=== PATIENT | female | born 1975 | race Caucasian/White ===

== ENCOUNTER 2020-10-26 11:42 | Emergency (ER) | payer OTHER, SELFPAY ==
[2020-10-26 11:57] VITALS: BP 103/41; PULSE 78; RESP 16; TEMP 37.1; O2SAT 98; BMI 26.2
== END 2020-10-26 15:34 | disposition left against medical advice (07) ==
PROVIDERS: Emergency Provider Emergency Medicine Emergency Medical Services; PCP Internal Medicine
DX: Z71.1 Person with feared health complaint in whom no diagnosis is made (principal)
CPT/HCPCS: 99281; 99282

== ENCOUNTER 2022-01-17 12:26 | Emergency (ER) | payer OTHER, SELFPAY ==
[2022-01-17 12:36] VITALS: BP 116/77; PULSE 88; O2SAT 99
[2022-01-17 12:38] VITALS: BP 116/77; BP 119/64; PULSE 78; PULSE 88; RESP 20; TEMP 35.8; O2SAT 100; BMI 27.4
[2022-01-17] MEDS: Ondansetron ODT 4 MG TAB.RAPDIS TRANSLINGU (12:43)
== END 2022-01-17 15:13 | disposition left against medical advice (07) ==
LOC: HO.ED 14:54
PROVIDERS: Emergency Provider Emergency Medicine
DX: R11.2 Nausea with vomiting, unspecified (principal); R51.9 Headache, unspecified
CPT/HCPCS: 99281

== ENCOUNTER 2022-05-29 14:11 | Outpatient (RCR) | payer OTHER, SELFPAY | END 2022-06-30 10:40 | disposition home or self-care (01) | LOC: HO.PT 14:11 | PROVIDERS: PCP Internal Medicine; Visit Provider Internal Medicine | DX: M25.551 Pain in right hip (principal); M25.552 Pain in left hip; M25.561 Pain in right knee; M25.562 Pain in left knee | CPT/HCPCS: 97110; 97161 ==

== ENCOUNTER 2022-06-04 07:29 | Outpatient (REF) | payer OTHER, SELFPAY ==
--- NOTE | ~2022-06-04 | MR_ITS ---
EXAMINATION: MR CERVICAL SPINE WITHOUT AND WITH CONTRAST CLINICAL INFORMATION: 46-year-old with self-reported hyperreflexia, bilateral heel pain and bilateral shoulder pain. Evaluating for cervical cord compression with myelopathy. COMPARISON: None TECHNIQUE: MRI of the cervical spine was obtained using routine sequences with and without contrast. Intravenous contrast: Gadavist 7 mL. FINDINGS: ALIGNMENT: Normal. Normal lordotic curvature. CRANIOCERVICAL JUNCTION/C1-C2 ARTICULATIONS: Mild retrolisthesis at the left C1-C2 facet joint, which is nonspecific but is likely related to a mild degree of head rotation. The atlantooccipital joints and C1-C2 articulations are otherwise intact and unremarkable. VISUALIZED INTRACRANIAL STRUCTURES: Within normal limits. VERTEBRAL BODIES: Well maintained with normal height. No compression fractures, anomalies or other deformities. DISC SPACES AND ENDPLATES: The intervertebral disc space heights are well maintained. There are mild degrees of anterior marginal endplate spurring with prevertebral disc ossified complex at C4-C5, C5-C6 and C6-C7. Endplates are intact. BONE MARROW: No significant marrow-replacing process or bone marrow edema and no abnormal bone marrow enhancement. C2-C3: No disc herniation or canal stenosis. No significant DJD or neural foraminal stenosis. C3-C4: No disc herniation or canal stenosis. No significant DJD or neural foraminal stenosis. C4-C5: No disc herniation or canal stenosis. No significant DJD or neural foraminal stenosis. C5-C6: No disc herniation or canal stenosis. No significant DJD or neural foraminal stenosis. C6-C7: Broad-based central to right paramedian disc protrusion noted with indentation of the ventral thecal sac without cord impingement. Mild central canal narrowing is noted. No significant DJD or neural foraminal stenosis. C7-T1: No disc herniation or canal stenosis. Mild facet arthrosis noted bilaterally without significant neural foraminal stenosis. T1-T2: No disc herniation or canal stenosis. No significant DJD or neural foraminal stenosis. SPINAL CORD: The cervical and visualized upper thoracic spinal cord is normal in signal intensity throughout, without focal lesion, edema or syrinx and no abnormal spinal cord or leptomeningeal enhancement. Very slight ventral cord deformity on the right at the C6-C7 level noted, likely chronic. EXTRACRANIAL SOFT TISSUES: The visualized extracranial head/neck soft tissues are unremarkable within the limitations of the study. MR/MR cervical spine wo/w con IMPRESSION: 1. Mild broad-based central to right paramedian disc protrusion at C6-C7 without cord impingement, with very slight ventral cord deformity on the right at this level, likely chronic. 2. Mild degrees of anterior marginal spondylosis and prevertebral disc-osteophyte complex at C4-C5, C5-C6 and C6-C7. 3. Normal appearance to the spinal cord. No abnormal spinal cord or leptomeningeal enhancement. No myelopathic changes.
== END 2022-06-04 07:30 | disposition home or self-care (01) ==
LOC: HO.MRI 07:29
PROVIDERS: PCP Internal Medicine; Visit Provider Psychiatry & Neurology Neurology
DX: G95.20 Unspecified cord compression (principal)
CPT/HCPCS: 72156; A9585

== ENCOUNTER 2022-06-22 08:06 | Outpatient (REF) | payer OTHER, SELFPAY ==
--- NOTE | ~2022-06-22 | MR_ITS ---
EXAMINATION: MR THORACIC SPINE WITHOUT AND WITH CONTRAST CLINICAL INFORMATION: Paraparesis COMPARISON: Thoracic spine radiographs from 03/05/2015. TECHNIQUE: MRI of the thoracic spine was obtained using routine sequences without and following the administration of 7 mL of Gadavist intravenous contrast. FINDINGS: Mildly motion degraded exam. Normal anatomic alignment. Normal, homogeneous marrow signal throughout. The vertebral body heights are maintained. The intervertebral discs are of normal height and signal. No significant abnormalities of the thoracic spinal cord. The conus medullaris terminates at the level of L1-L2. No abnormal contrast enhancement. No significant abnormalities of the paraspinal musculature. Limited evaluation of the intrathoracic structures without significant abnormalities. The descending thoracic aorta is of normal contour and caliber. AXIAL SPINAL LEVELS: Normal annular contours.. There is mild multilevel facet joint arthropathy. There is no neural foraminal stenosis. There is no spinal canal stenosis. 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 No overt spinal canal stenosis or nerve root compression. No abnormal enhancement or spinal cord signal abnormality.
== END 2022-06-22 08:07 | disposition home or self-care (01) ==
LOC: HO.MRI 08:06
PROVIDERS: Visit Provider Psychiatry & Neurology Neurology
DX: G82.20 Paraplegia, unspecified (principal)
CPT/HCPCS: 72157; A9585

== ENCOUNTER 2022-07-10 08:06 | Outpatient (REF) | payer OTHER, SELFPAY ==
--- NOTE | ~2022-07-10 | MR_ITS ---
EXAMINATION: MR BRAIN WITHOUT AND WITH CONTRAST CLINICAL INFORMATION: Paraparesis. COMPARISON: CT head from 08/05/2019. TECHNIQUE: MRI of the brain was obtained using routine sequences without and following the administration of 7 mL of Gadavist intravenous contrast. FINDINGS: No focal restricted diffusion is demonstrated to suggest acute or subacute cerebral ischemia. No evidence of acute or chronic hemorrhagic products on heme-sensitive imaging. Few nonspecific scattered periventricular and deep white matter T2 FLAIR hyperintensities. The ventricles are normal in morphology and size. No abnormal mass effect. No midline shift. Normal appearance of the pituitary gland. Normal positioning of the cerebellar tonsils. Normal arterial and venous vascular flow voids are present. No abnormal contrast enhancement. Normal, homogeneous marrow signal. Mild mucosal thickening of the paranasal sinuses. No signal abnormalities within the mastoids. MR/MR head/brain wo/w con IMPRESSION: 1. No acute intracranial abnormalities. No abnormal intracranial enhancement. 2. Minimal nonspecific white matter changes.
== END 2022-07-10 08:07 | disposition home or self-care (01) ==
LOC: HO.MRI 08:06
PROVIDERS: Visit Provider Psychiatry & Neurology Neurology
DX: G82.20 Paraplegia, unspecified (principal)
CPT/HCPCS: 70553; A9585

== ENCOUNTER 2022-08-25 14:39 | Outpatient (REF) | payer OTHER, SELFPAY ==
[2022-08-25 16:26] LABS: Vitamin B12 590 pg/mL (200-900)
[2022-08-25 16:32] LABS: Erythrocyte Sedimentation Rate 12 MM/HR (0-20)
[2022-08-27 08:38] LABS: Lyme Abs Screen <0.90 index
[2022-08-31 09:24] LABS: Anti Nuclear Antibody Screen NEGATIVE (NEGATIVE)
== END 2022-08-25 14:40 | disposition home or self-care (01) ==
LOC: HO.LAB 14:39
PROVIDERS: PCP Internal Medicine; Visit Provider Psychiatry & Neurology Neurology
DX: G82.20 Paraplegia, unspecified (principal)
CPT/HCPCS: 36415; 82550; 82607; 85652; 86038; 86039; 86617; 86618

== ENCOUNTER → 2022-09-18 09:27 | Day surgery (SDC) | payer OTHER, SELFPAY ==
[2022-09-18] VITALS (7 sets, daily range): BP systolic 99–110; BP diastolic 58–64; PULSE 60–68; RESP 14–16; TEMP 36.2–36.4; O2SAT 98–100; BMI 27.4
--- NOTE | ~2022-09-18 | FL_ITS ---
EXAMINATION: XR LUMBAR PUNCTURE CLINICAL INFORMATION: Bilateral paraparesis. COMPARISON: None available. TECHNIQUE: Following explaining fluoroscopy-guided lumbar puncture procedure, benefits and risk, a written consent was obtained. Patient was placed prone and a site was selected and marked on the skin. Marked site overlying the L4-L5 and L3-L4 disc levels were cleaned and draped in usual sterile manner. 1% lidocaine was injected left para midline region. A 22-gauge spinal needle was initially injected at L4-L5 disc level however due to dry tap needle was inserted at the L3-L4 disc level. After removing the stylet and observing CSF return, patient was quickly placed in the left lateral leg venous view and opening CSF pressure was obtained. Subsequently fluid was collected in 4 test tubes. Stylet was reintroduced and needle withdrawn. Patient tolerated procedure extremely well. Sterile Band-Aid applied postprocedure. FINDINGS: On images obtained of lumbar spine there is normal lumbar lordosis. The vertebral heights and alignment is normal. The disc heights are normal. The opening CSF pressure measures 15 cm of water. In 4 test tubes. Approximately 8 mL left clear CSF fluid was collected FLUOROSCOPY TIME: 2.3 minutes DOSE AREA PRODUCT: 27.503 uGy-m2 (microgray-meter squared) FL/FL guided lumbar puncture LP IMPRESSION: Successful fluoroscopic guided lumbar puncture performed. The opening CSF pressure measured 15 cm of water.
[2022-09-18 10:09] LABS: MANUAL DIFF FLAG NO
[2022-09-18 10:20] LABS: Basophils Absolute Auto 0.1 X10*3/uL (0.0-0.2); Basophils Percent Auto 0.7 % (0-2); Eosinophils Absolute Auto 0.2 X10*3/uL (0.0-0.4); Eosinophils Percent Auto 2.1 % (0-4); Hematocrit 38.9 % (37.0-47.0); Hemoglobin 12.9 g/dl (12.0-16.0); Imm Gran Abs Auto 0.03 X10*3/uL (0.00-0.03); Imm Gran Pct Auto 0.4 % (0.0-0.4); Lymphocytes Absolute Auto 1.7 X10*3/uL (1.2-4.9); Lymphocytes Percent Auto 22.4 % (20-40); Mean Corpuscular HGB Conc 33.2 g/dl (31.0-35.0); Mean Corpuscular Hemoglobin 29.8 pg (27.0-33.0); Mean Corpuscular Volume 89.8 fL (80.0-98.0); Mean Platelet Volume 9.7 fL (9.4-12.3); Monocytes Absolute Auto 0.5 X10*3/uL (0.1-1.2); Monocytes Percent Auto 6.6 % (2-11); Neutrophils Absolute Auto 5.2 x10*3/uL (2.0-8.3); Neutrophils Percent Auto 67.8 % (45-73); Platelet Count 276 X10*3/uL (160-400); Red Blood Count 4.33 X10*6/uL (4.20-5.50); Red Cell Distribution Width 14.2 % (11.0-16.0); White Blood Count 7.6 X10*3/uL (4.8-10.8)
[2022-09-18 10:24] LABS: INTERNATIONAL NORM RATIO 1.1 (0.9-1.1); Prothrombin Time 12.1 SEC (10.0-13.1)
[2022-09-18 10:27] LABS: Partial Thromboplastin Time 32.2 SEC (26.0-36.4)
[2022-09-18] MEDS: Acetaminophen 325 MG TABLET 975 MG PO (13:15)
[2022-09-18 14:08] LABS: CSF Appearance Clear, Colorless; CSF Tube # 1
[2022-09-18 14:15] LABS: Glucose CSF 53 mg/dL; Total Protein CSF 27.5 mg/dL (15-45)
[2022-09-18 14:24] LABS: Appearance CSF CLEAR; CSF Monos 20 %; CSF Tube # 4; Color CSF COLORLESS; Lymphocytes CSF 80 %; Red Blood Cell CSF 0 MM*3; White Blood Cell CSF 2 MM*3
[2022-09-18] MEDS: oxyCODONE HCl Immed Release 5 MG TABLET PO (14:50)
[2022-10-05 11:51] LABS: HTLV I-II Antibody SEE COMMENTS
== END | disposition home or self-care (01) ==
PROVIDERS: Psychiatry & Neurology Neurology; PCP Internal Medicine; Visit Provider Radiology Diagnostic Radiology
PROC: 009U3ZZ Drainage of Spinal Canal, Percutaneous Approach (ICD-10-PCS; CPT 62270; principal; 2022-09-18 11:00)
DX: G82.20 Paraplegia, unspecified (principal); G47.9 Sleep disorder, unspecified; M79.7 Fibromyalgia; F41.1 Generalized anxiety disorder; N32.89 Other specified disorders of bladder; Z79.899 Other long term (current) drug therapy; Z88.8 Allergy status to other drugs, medicaments and biological substances
CPT/HCPCS: 36415; 62328; 82042; 82945; 83916; 84157; 85025; 85610; 85730; 86790; 87015; 87070; 87205; 89051

== ENCOUNTER 2023-04-26 08:58 | Emergency (ER) | payer OTHER, SELFPAY ==
[2023-04-26 09:15] VITALS: BP 123/60; PULSE 80; RESP 18; TEMP 36.6; O2SAT 100; BMI 26.8
--- NOTE | 2023-04-26 09:52 | ED_ITS ---
HPI - General Adult General Chief complaint: General Medical Stated complaint: Fibromyalgia Time Seen by Provider: 04/26/23 09:26 Source: patient Mode of arrival: ambulatory Limitations: no limitations History of Present Illness HPI narrative: 47-year-old female history of anxiety, fibromyalgia, and posttraumatic stress disorder presents to the ED for fibromyalgia exacerbation. Patient states generalized body pain, and low back pain radiating down both legs. patient denies any urinary / bowel incontinence. Patient denies any leg swelling, recent long travel, recent surgery, or any control use. Patient denies any history of IV drug use. Patient seen by multiple providers include and is awaiting for a rheumatology appointment. Patient states her Cymbalta had to be increased to cope with fibromyalgia symptoms. Patient also states slight cough. patient denies any chest pain, shortness of breath, calf pain, or pleurisy. Patient denies any recent trauma. Related Data Home Medications Medication Instructions Recorded Confirmed gabapentin 300 mg capsule 300 mg PO TID 09/18/22 09/18/22 paroxetine HCl 40 mg tablet 40 mg PO DAILY 09/18/22 09/18/22 Previous Rx's Medication Instructions Recorded lidocaine 4 % topical patch 1 patch topical DAILY PRN pain #30 04/26/23 ea oxycodone 5 mg capsule 5 mg PO TID PRN pain 3 days #9 caps 04/26/23 Allergies Allergy/AdvReac Type Severity Reaction Status Date / Time No Known Allergies Allergy Verified 04/26/23 09:17 Review of Systems Review of Systems: Generalized body aches, back pain radiating down legs. Yes all other systems are reviewed and are negative PMFSH Past Medical History Surgical History (Updated 09/18/22 @ 10:18 by Mireille Can RN) H/O tubal ligation Physical Exam ED Vital Signs: Vital Signs - 24 hr 04/26/23 09:15 Temperature 97.9 F Pulse Rate 80 Respiratory Rate 18 Blood Pressure 123/60 Pulse Oximetry 100 Oxygen Delivery Method Room Air BMI result Body Mass Index 26.8 Const General: cooperative, healthy appearing, comfortable, no acute distress, well developed, alert, awake and Physically active Orientation/consciousness: oriented to person, oriented to place and patient oriented x3 HENMT Head: Yes normal to inspection, Yes No palpable skull fracture present, Yes nor mocephalic and Yes atraumatic Eyes General: appearance normal, both eyes and all related structures Neck Neck: Yes normal visual inspection, Yes full ROM, Yes no lymphadenopathy, Yes no meningeal signs, Yes trachea midline, Yes supple, No anterior neck swelling and No tender Chest Chest palpation & inspection: normal inspection of the chest and normal palpation of entire chest wall Resp Effort & Inspection: normal respiratory effort and able to speak in complete sentences Auscultation: clear to auscultation bilaterally Cardio Jugular venous distension: no JVD Heart sounds: S1 normal heart sound present and S2 normal heart sound present GI Inspection: Yes normal to inspection Palpation (GI): Soft to palpation, not firm, nontender, no guarding and not rigid General: Yes no CVA tenderness Back/Spine/Pelvis Back: no CVA tenderness and back tenderness (lumbar/thoracic) Skin General skin exam: no rashes or lesions noted, elasticity normal and turgor normal Neuro General: oriented to person, oriented to place, patient oriented x3, gait normal, tone normal, moves all extremities, Normal light touch and pain sensation, no meningeal signs, no focal motor deficits, CN's II-XI intact bilaterally and normal sensation to monofilament Extrem Other: bilateral lower extremity negative for swelling, pitting edema, or calf pain. Patient describes pain lower extremities as burning. Negative for rash. Motor/neuro/vacsular exam intact of lower extremiteis. negative for erythema, ecchymosis, skin tightness, hotness, or coldness. Psych Appearance: grossly normal, well kempt and not disheveled Medications Administered Discontinued Medications Generic Name Dose Route Start Last Admin Trade Name Monica PRN Reason Stop Dose Admin Acetaminophen 975 mg 04/26/23 10:04/26/23 10:08 Acetaminophen 325 Mg Tablet PO 04/26/23 10:02 975 mg ONCE ONE Administration Oxycodone HCl 5 mg 04/26/23 10:04/26/23 10:08 Oxycodone Hcl Immed Release 5 Mg Tablet PO 04/26/23 10:02 5 mg ONCE ONE Administration Prednisone 40 mg 04/26/23 10:01 04/26/23 10:07 Prednisone 20 Mg Tablet PO 04/26/23 10:02 40 mg ONCE ONE Administration Prednisone 20 mg 04/26/23 10:13 04/26/23 10:19 Prednisone 20 Mg Tablet PO 04/26/23 10:14 20 mg ONCE ONE Administration Medical Decision Making Medical Decision Making [facility] Narrative: 47-year-old female history of anxiety, fibromyalgia, posttraumatic stress disorder, presents to ED for fibromyalgia exacerbation described as generalized body aches, and low back pain radiating down both legs. Patient denies any recent trauma, urinary / bowel incontinence, IV drug use, recent long travel, recent surgery, calf pain, or pleurisy. patient admits to cough. COVID influenza swab ordered. UA ordered to make sure there is no signs of urinary tract infection. 10:22am: I reviewed notes by TAO Borrero PA-C from February 15 2023 where patient had similar presentation of fibromyagli exacerbation with worsening bilateral leg pain and back pain and he increased the Cymbalta. In his note patient had negative neuro workup. And he referred patient to rheumatology. Presently patient has same presentation as notes from . 11:33pm; Enrique Portillo of [facility] Training [facility] of Endocrinology/Rheumatology was contacted to expedite patient having an earlier rheumatology appointment for her symptoms. She agreed and states she will contact patient for an earlier appointment. patient will be discharged with oxycodone. Patient cannot take NSAIDs due to heart palpitations. Not suspecting cauda equina, spinal epidural abscess, DVT, compartment syndrome, PE, myocardial infarction, CHF, or any fracture. Patient eating food and laughing. Patient has normal gait. 12:09pm: Patient has appointment with Dr. Duong of Rheumatology for 05/18/2023 Differential Diagnosis Differential Diagnoses: The differential diagnosis associated with the presentation includes ( Fibromyalgia, COVID, influenza, sore throats,) Admission/Observation Consideration of admission/observation: Escalation of care including admission/observation considered Consult Healthcare Provider Management of the patient was discussed with: Consumer Loan Underwriter (LEad Training Designer of ENdocrinolog/Rheumatology CLinic Enrique Portillo) Lab Data [facility] Lab Attestation statement: I reviewed the patient's lab results. Labs: Lab Results 04/26/23 04/26/23 Range/Units 10:10 10:25 Urine Color Yellow Urine Appearance Cloudy Urine pH >= 9.0 (5.0-9.0) Ur Specific [place] 1.015 (1.005-1.025) Urine Protein Negative (Neg-Trace) mg/dL Urine Glucose (UA) Negative (Negative) mg/dL Urine Ketones Negative (Negative) mg/dL Urine Blood Negative (Negative) Urine Nitrite Negative (Negative) Ur Leukocyte Esterase Negative (Negative) Urine Test NEGATIVE (NEGATIVE) COVID-19 (EL[facility]ETH) Negative (Negative) COVID-19 Clin Com See Note Influenza Type A (MONICA) Negative (Negative) Influenza Type B (MONICA) Negative (Negative) Influenza A & B Note See Note External Record Review External record reviewed: Other (PRior vistis) Prescription Management I considered prescription management with: Pain Medication Discharge Plan Discharge Clinical Impression: Fibromyalgia Patient Disposition: Home, Self-Care Instructions: Fibromyalgia (ED), Musculoskeletal Pain (ED) Additional Instructions: please follow-up with the primary care provider. Please contact Enrique Portillo, Lead credit risk manager of Endocrinology/Rheumatology CLinic, to confirm earlier appointment. return to the ED immediately for any worsening pain, leg swelling, calf pain, coughing up blood, worsening back pain, fever, chills, urinary / bowel incontinence, chest pain, shortness of breath, chest pain on inspiration, uncontrolled pain, or any other concerning symptoms. Prescriptions: New oxycodone 5 mg capsule 5 mg PO TID PRN (Reason: pain) 3 Days Qty: 9 0RF Rx Instructions: Partial Fill upon patient request. Do not take at work or while driving. Can take at night. lidocaine 4 % adhesive patch,medicated 1 patch topical DAILY PRN (Reason: pain) Qty: 30 0RF No Action gabapentin 300 mg capsule 300 mg PO TID paroxetine HCl 40 mg tablet 40 mg PO DAILY Stand Alone Forms: Work/School Release Interventions: ED Discharge Assessment Last Done: 04/26/23 12:23 Discharge Date/Time: 04/26/23 12:24 Print Language: Azeri
[2023-04-26] MEDS: predniSONE 20 MG TABLET 40 MG PO (10:07)
[2023-04-26] MEDS: oxyCODONE HCl Immed Release 5 MG TABLET PO (10:08)
[2023-04-26] MEDS: Acetaminophen 325 MG TABLET 975 MG PO (10:08)
[2023-04-26] MEDS: predniSONE 20 MG TABLET PO (10:19)
[2023-04-26 10:33] LABS: COVID-19 Test Negative (Negative); IDNOW Serial# 08D9AD1C; IDNOW Serial# BCCEAD1C; Influenza A Negative (Negative); Influenza B2 Negative (Negative)
[2023-04-26 10:36] LABS: Appearance Urine Cloudy; Color Urine Yellow; Glucose Urine UA Negative (Negative); Leukocyte Esterase Urine Negative (Negative); Nitrite Urine Negative (Negative); PH >= 9.0 (5.0-9.0); Specific Gravity - Urine 1.015 (1.005-1.025); UPreg QC Valid YES; Urine Blood Negative (Negative); Urine Ketones Negative (Negative); Urine Pregnancy NEGATIVE (NEGATIVE); Urine Protein Negative (Neg-Trace)
== END 2023-04-26 12:24 | disposition home or self-care (01) ==
PROVIDERS: Physician Assistant; Emergency Provider Emergency Medicine; PCP Internal Medicine
DX: M79.7 Fibromyalgia (principal); Z11.52 Encounter for screening for COVID-19; F17.200 Nicotine dependence, unspecified, uncomplicated; Z79.899 Other long term (current) drug therapy
CPT/HCPCS: 81003; 81025; 87502; 87635; 99283; 99284

== ENCOUNTER 2023-05-18 07:45 | Outpatient (AMB) | payer OTHER, SELFPAY ==
[2023-05-18 07:49] VITALS: BP 122/84; PULSE 87; TEMP 36.1; O2SAT 97; BMI 26.5
--- NOTE | 2023-05-18 07:49 | A.OFFVIS_ITS ---
Intake Vital Signs 05/18/23 07:49 Height 5 ft 2 in Weight 144 lb 13.499 oz BMI 26.5 BP 122/84 Blood Pressure Location Lt brachial Position Sitting Pulse 87 Pulse Source Pulse Oximeter Temp 97 F Temp Source Skin Pulse Oximetry (%) 97 Oxygen Delivery Method Room Air Intake Visit Reasons: Fibromyalgia Intake Note: New pt presents today for fibromyalgia. Formerly seeing ATC, about a year ago. Meter Reading Clerk Required: No Accompanied by: Self / Same As Patient Allergies No Known Allergies Allergy (Verified 05/18/23 07:50) Medication List - Last Reconciled 05/18/23 by Curtis Duong MD cholecalciferol (vitamin D3) 50 mcg PO DAILY duloxetine 60 mg PO DAILY lidocaine 4% 1 patch topical DAILY PRN paroxetine HCl 40 mg PO DAILY HPI HPI Comments History of Present Illness Details This is a 47-year-old female who presents for evaluation of fibromyalgia. Of note patient was evaluated by Neurology due to bilateral knee hyperreflexia. She had an LP, CSF studies, thoracic and cervical MRIs. According to Neurology no specific cause was found. Autoimmune workup was performed which was negative, she was also evaluated at [facility] and no signature arthritic condition was diagnosed. She states that she has been having pain in her knees, groin, legs, difficulty walking. Patient reduced her working hours from 40 hours a week to 25 hours a week. She has difficulty falling and staying asleep. 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 Review of Systems Eyes Reports blurry vision and Reports diplopia ENT Reports tinnitus Card Reports chest pain and Reports dyspnea Resp Reports cough and Reports dyspnea GI Reports constipation Musc Reports arthralgias and Reports muscle weakness Psych Reports abnormal sleep pattern, Reports anxiety and Reports depression Physical Exam Vital Signs: Last Vital Signs Temp 97 F 05/18/23 07:49 Pulse 87 05/18/23 07:49 BP 122/84 05/18/23 07:49 Pulse Ox 97 05/18/23 07:49 Oxygen Delivery Method Room Air 05/18/23 07:49 BMI result Body Mass Index 26.5 Const General: cooperative, healthy appearing and comfortable Nutritional Appearance: overweight Orientation/consciousness: patient oriented x3 HEENT Head: Yes normocephalic and Yes atraumatic Mouth: moist mucous membranes Resp Effort & Inspection: normal respiratory effort and able to speak in complete sentences Auscultation: clear to auscultation bilaterally Cardio Rate: regular rate Rhythm: regular rhythm Skin General skin exam: no rashes or lesions noted Neuro General: patient oriented x3 Extrem Other: Multiple fibromyalgia tender points No active synovitis Normal nailfold capillaroscopy Assessment & Plan Assessment & Plan (1) Fibromyalgia: Code(s): M79.7 - Fibromyalgia Plan: This is a 47-year-old female who presents for evaluation of fibromyalgia. I do not see any signs of an autoimmune rheumatic disease. Discussed different management strategies for fibromyalgia. I suggested that patient seek evaluation by psychologist and/or psychiatrist. Try to follow sleep hygiene practices. Consider a sleep study to rule out obstructive sleep apnea. Regular exercise programs, consider low-impact exercises such as stretching, yoga, aquatherapy, swimming. She did not feel any significant improvement with gabapentin or duloxetine Follow-up with PCP Plan I spent 20 minutes reviewing patient's chart, evaluating patient,, counseling patient and documenting in the chart Coding Level of Care Code New Pt Level 3 (48767) Diagnoses Fibromyalgia M79.7
== END 2023-05-18 08:15 | disposition home or self-care (01) ==
PROVIDERS: PCP Internal Medicine; Visit Provider Student in an Organized Health Care Education/Training Program
DX: M79.7 Fibromyalgia (principal)
CPT/HCPCS: 99203

== ENCOUNTER → 2023-05-18 07:45 | Outpatient (BNVA) | payer OTHER, SELFPAY | PROVIDERS: PCP Internal Medicine; Visit Provider Student in an Organized Health Care Education/Training Program | DX: M79.7 Fibromyalgia (principal) | CPT/HCPCS: 99202 ==

== ENCOUNTER 2024-03-26 04:33 | Emergency (ER) | payer OTHER, SELFPAY ==
[2024-03-26 04:39] VITALS: BP 105/50; BP 112/68; PULSE 74; PULSE 80; RESP 16; TEMP 36.9; O2SAT 100; O2SAT 94; BMI 25.6
[2024-03-26 04:43] VITALS: BP 105/50; PULSE 76; RESP 20; TEMP 36.9; O2SAT 98
--- NOTE | 2024-03-26 04:46 | ED_ITS ---
HPI - URI/Sore Throat General Chief Complaint: Upper Respiratory Symptoms Stated Complaint: covid + Time Seen by Provider: 03/26/24 04:45 Source: patient Mode of arrival: ambulatory Limitations: no limitations History of Present Illness ED Provider: nina PALMER Narrative: Patient comes here for positive COVID with sore throat running nose body aches for last 3 days, last week her daughter was sick patient has never been vaccinated against COVID but had COVID 2 times Related Data Home Medications ?Medication ?Instructions ?Recorded ?Confirmed paroxetine HCl 40 mg tablet 40 mg PO DAILY 09/18/22 05/18/23 cholecalciferol (vitamin D3) 50 50 mcg PO DAILY 05/18/23 05/18/23 mcg (2,000 unit) capsule duloxetine 60 mg capsule,delayed 60 mg PO DAILY 05/18/23 05/18/23 release Previous Rx's ?Medication ?Instructions ?Recorded lidocaine 4 % topical patch 1 patch topical DAILY PRN pain #30 04/26/23 ea cyclobenzaprine 10 mg tablet 10 mg PO TID PRN muscle spasm #20 08/30/23 tabs amoxicillin 875 mg-potassium 1 tab PO BID #20 tabs 03/26/24 clavulanate 125 mg tablet benzonatate 200 mg capsule 200 mg PO TID PRN cough #30 caps 03/26/24 ibuprofen 600 mg tablet 600 mg PO Q6H PRN fever or pain 03/26/24 #30 tabs Allergies Allergy/AdvReac Type Severity Reaction Status Date / Time No Known Allergies Allergy Verified 03/26/24 04:41 Review of Systems Review of Systems: Yes all other systems are reviewed and are negative PMFSH Past Medical History Medical History Fibromyalgia Surgical History H/O tubal ligation Family History Family History Other Arthritis Social History Social History Alcohol intake: current Alcohol intake frequency: holidays/special occasions only Patient Tobacco Use Status: Current someday Tobacco user Smoked in Last 30 Days: No Use of substances other than those prescribed or required for medical reasons: No Advance Directives: No Do you have a plan to hurt others: No Plan Patient : No service: Yes 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 Oriented X3. No acute distress. ENT: Pharynx erythematous no exudates Oral Mucosa moist right tympanic membrane with clear fluid behind the drum with slight erythema Neck: Normal inspection. Neck supple. CVS: Normal heart rate and rhythm. Pulses normal. Respiratory: No respiratory distress. Equal air entry bilateral, no wheezing/rales/rhonchi Skin: Skin warm and dry. Normal skin color. Normal skin turgor. Extremities: No lower extremity edema. Neuro: Oriented X 3. Medications Administered Discontinued Medications Generic Name Dose Route Start Last Admin Trade Name Freq PRN Reason Stop Dose Admin Acetaminophen 975 mg 03/26/24 05:43 03/26/24 05:51 Acetaminophen 325 Mg Tablet PO 03/26/24 05:44 975 mg ONCE ONE Administration Guaifenesin/Codeine Phosphate 10 ml 03/26/24 05:42 03/26/24 05:50 Guaifen/Codeine Sf 200/20/10ml 10 Ml Liquid PO 03/26/24 05:43 10 ml NOW STA Administration Ibuprofen 600 mg 03/26/24 05:42 03/26/24 05:50 Ibuprofen 600 Mg Tablet PO 03/26/24 05:43 600 mg ONCE ONE Administration Medical Decision Making Lab Data Labs: Lab Results 03/26/24 Range/Units 05:13 Influenza Type A (PCR) NEGATIVE (Negative) Influenza Type B (PCR) NEGATIVE (Negative) RSV RNA Qual (PCR) NEGATIVE (Negative) SARS-CoV-2 RNA (RT-PCR) POSITIVE A (Negative) S. pyogenes GrpA MONICA Negative (Negative) Discharge Plan Discharge Clinical Impression: COVID-19, Otitis media Patient Disposition: Home, Self-Care Instructions: Serous Otitis Media (ED), COVID-19 (Coronavirus Disease 2019) (ED) Additional Instructions: Supportive treatment as advised Cough drops as prescribed Follow with your PCP as needed Antibiotic as prescribed Prescriptions: New amoxicillin-pot clavulanate 875-125 mg tablet 1 tab PO BID Qty: 20 0RF benzonatate 200 mg capsule 200 mg PO TID PRN (Reason: cough) Qty: 30 0RF ibuprofen 600 mg tablet 600 mg PO Q6H PRN (Reason: fever or pain) Qty: 30 0RF No Action paroxetine HCl 40 mg tablet 40 mg PO DAILY lidocaine 4 % adhesive patch,medicated 1 patch topical DAILY PRN (Reason: pain) Qty: 30 0RF cyclobenzaprine 10 mg tablet 10 mg PO TID PRN (Reason: muscle spasm) Qty: 20 0RF duloxetine 60 mg capsule,delayed release(DR/EC) 60 mg PO DAILY cholecalciferol (vitamin D3) 50 mcg (2,000 unit) capsule 50 mcg PO DAILY Print Language: Irish
[2024-03-26 05:29] LABS: IDNOW Serial# 08D9AD1C; Strep A Nucleic Acid Negative (Negative)
[2024-03-26 05:40] VITALS: BP 94/55; PULSE 73; RESP 20; TEMP 37.1; O2SAT 98
[2024-03-26] MEDS: guaiFEN/Codeine SF 200/20/10ML 10 ML LIQUID PO (05:50)
[2024-03-26] MEDS: Ibuprofen 600 MG TABLET PO (05:50)
[2024-03-26] MEDS: Acetaminophen 325 MG TABLET 975 MG PO (05:51)
[2024-03-26 05:55] LABS: Influenza A PCR NEGATIVE (Negative); Influenza B PCR NEGATIVE (Negative); Resp Syncy Virus RNA Qual PCR NEGATIVE (Negative); SARS COV2 PCR INHOUSE POSITIVE (Negative)
[2024-03-26] MEDS: Amoxicillin/Potassium Clav 875 MG TABLET PO (06:06)
[2024-03-26 06:07] VITALS: BP 94/55; PULSE 73; RESP 20; TEMP 37.1; O2SAT 98
== END 2024-03-26 06:17 | disposition home or self-care (01) ==
PROVIDERS: Emergency Provider Internal Medicine; PCP Internal Medicine
DX: U07.1 COVID-19 (principal); H66.93 Otitis media, unspecified, bilateral; J02.9 Acute pharyngitis, unspecified; M79.10 Myalgia, unspecified site; Z79.899 Other long term (current) drug therapy
CPT/HCPCS: 0241U; 87651; 99285